=== PATIENT | female | born 1960 | race African-American/Black ===

== ENCOUNTER 2021-07-18 22:44 | Emergency (ER) | payer OTHER ==
[~2021-07-18] VITALS: Ht 167.6 cm; Wt 117.0 kg
[~2021-07-18 22:44] MED LIST: SEPTRA DS TABLE1 TAB PO
== END 2021-07-19 01:22 | disposition home or self-care (01) ==
LOC: ER 22:44
DX: J10.1 Influenza due to other identified influenza virus with other respiratory manifestations (principal); Z03.818 Encounter for observation for suspected exposure to other biological agents ruled out